=== PATIENT | female | born 1960 | race Caucasian/White ===

== ENCOUNTER 2019-02-04 10:52 | Emergency (ER) | payer MEDICARE, OTHER ==
[~2019-02-04] VITALS: Ht 165.1 cm; Wt 93.5 kg
[2019-02-04 11:00] VITALS: Ht 165.1 cm; Wt 93.5 kg
[2019-02-04] MEDS ORDERED: SOD CHLORIDE 0.9% 1,000 ML IV STA (11:43)
[2019-02-04] MEDS ORDERED: ONDANSETRON 4 MG INJ IV STA (11:43)
[2019-02-04] MEDS ORDERED: DICY10CA40 PO (12:44)
[2019-02-04] MEDS ORDERED: ONDA4TAB14 PO (12:44)
[2019-02-04 13:10] VITALS: BP 131/80; PULSE 62; RESP 16
--- NOTE | 2019-02-04 16:31 | ERD ---
ER Documentation Chief Complaint Chief Complaint vomiting/diarrhea x 4 days HPI Patient is a 58-year-old female with past medical history of hypothyroidism, hypertension, who presents the ER for concerns of nausea, vomiting and diarrhea x4 days. Patient states she has had intermittent abdominal pain however at this time she does not have any abdominal pain. Patient states her symptoms started after eating pork. Patient denies any recent travel. Patient denies any recent antibiotic use. Patient has a history of a hysterectomy. Patient states she vomited once this morning. Patient states she has had 2-3 episodes of loose bowel movements per day. She states her bowel movements are yellow in color. No blood in her stools. Patient did see PCP Dr. Keene prior to coming to ER. Patient was sent to get stool studies done however she feels dehydrated that she presents to the ER. ROS All systems reviewed and are negative except as per history of present illness. Medications Home Meds Active Scripts Dicyclomine HCl (Dicyclomine HCl) 10 Mg Capsule, 10 MG PO TID PRN for ABDOMINAL CRAMPING, #20 CAP Prov:IAN BROOKS PA-C 02/04/19 Ondansetron (Ondansetron Odt) 4 Mg Tab.rapdis, 4 MG PO Q6H PRN for NAUSEA AND/OR VOMITING, #10 TAB Prov:IAN BROOKS PA-C 02/04/19 Allergies Allergies: Coded Allergies: cortisone (Verified Allergy, Unknown, anxiety, 02/04/19) PMhx/Soc History of Surgery: Yes (Hysterectomy,bilateral shoulder pain, left knee sx) Anesthesia Reaction: No Hx Miscellaneous Medical Probl: Yes (HTN, Hypothyroidsm) Hx Alcohol Use: No Hx Substance Use: No Hx Tobacco Use: No Smoking Status: Never smoker FmHx Family History: No diabetes Physical Exam Vitals Vital Signs Date Temp Pulse Resp B/P (MAP) Pulse Ox O2 O2 Flow FiO2 Time Delivery Rate 02/04/19 98.4 62 16 131/80 96 Room Air 13:10 (97) 02/04/19 97.9 78 18 167/79 99 11:00 (108) Physical Exam GENERAL: Well-developed, well-nourished male. Appears in no acute distress. Speaking full sentences. HEAD: Normocephalic, atraumatic. EYES: Pupils are equally reactive bilaterally. EOMs grossly intact. No conjunctival erythema. ENT: Moist mucous membranes. No uvula deviation. No kissing tonsils. NECK: Supple. No meningismus. Normal range of motion of the neck. LUNG: Clear to auscultation bilaterally. No rhonchi, wheezing, rales or coarse breath sounds. HEART: Regular rate and rhythm. No murmurs, rubs or gallops. ABDOMEN: Soft, nontender, and nondistended. No peritoneal signs. Positive bowel sounds in all four quadrants. No rebound tenderness, no guarding. (-) McBurney's point tenderness. No CVA tenderness. EXTREMITIES: Equal pulses bilaterally. No peripheral clubbing, cyanosis or edema. No unilateral leg swelling. NEUROLOGIC: Alert and oriented. Moving all four extremities without any difficulty. Normal speech. Steady gait. SKIN: Normal color. Warm and dry. No rashes or lesions. Result Diagram: 02/04/19 1202 02/04/19 1202 Results 24 hrs Laboratory Tests Test 02/04/19 12:02 White Blood Count 4.1 10^3/ul Red Blood Count 5.04 10^6/ul Hemoglobin 13.5 g/dl Hematocrit 41.5 % Mean Corpuscular Volume 82.3 fl Mean Corpuscular Hemoglobin 26.8 pg Mean Corpuscular Hemoglobin Concent 32.5 g/dl Red Cell Distribution Width 13.2 % Platelet Count 184 10^3/UL Mean Platelet Volume 11.3 fl Immature Granulocytes % 0.200 % Neutrophils % 37.1 % Lymphocytes % 52.1 % Monocytes % 8.6 % Eosinophils % 1.0 % Basophils % 1.0 % Nucleated Red Blood Cells % 0.0 /100WBC Immature Granulocytes # 0.010 10^3/ul Neutrophils # 1.5 10^3/ul Lymphocytes # 2.1 10^3/ul Monocytes # 0.4 10^3/ul Eosinophils # 0.0 10^3/ul Basophils # 0.0 10^3/ul Nucleated Red Blood Cells # 0.0 10^3/ul Urine Color YELLOW Urine Clarity SLIGHTLY CLOUDY Urine pH 5.0 Urine Specific [place] 1.017 Urine Ketones NEGATIVE mg/dL Urine Nitrite NEGATIVE mg/dL Urine Bilirubin NEGATIVE mg/dL Urine Urobilinogen NEGATIVE mg/dL Urine Leukocyte Esterase TRACE Buddy/ul Urine Microscopic RBC 2 /HPF Urine Microscopic WBC 3 /HPF Urine Squamous Epithelial Cells MODERATE /HPF Urine Bacteria FEW /HPF Urine Mucus MANY /HPF Urine Hemoglobin 1+ mg/dL Urine Glucose NEGATIVE mg/dL Urine Total Protein NEGATIVE mg/dl Sodium Level 141 mmol/L Potassium Level 4.5 mmol/L Chloride Level 107 mmol/L Carbon Dioxide Level 24 mmol/L Anion Gap 10 Blood Urea Nitrogen 10 mg/dl Creatinine 0.64 mg/dl Est Glomerular Filtrat Rate mL/min > 60 mL/min Glucose Level 96 mg/dl Calcium Level 9.3 mg/dl Total Bilirubin 0.4 mg/dl Direct Bilirubin 0.00 mg/dl Indirect Bilirubin 0.4 mg/dl Aspartate Amino Transf (AST/SGOT) 49 IU/L Alanine Aminotransferase (ALT/SGPT) 38 IU/L Alkaline Phosphatase 106 IU/L Total Protein 8.1 g/dl Albumin 4.4 g/dl Globulin 3.70 g/dl Albumin/Globulin Ratio 1.18 Lipase 80 U/L Current Medications Medications Dose Sig/Prashanth Start Time Status Last (Trade) Ordered Route PRN Stop Time Admin Dose Reason Admin Sodium 1,000 ml @ Q1H STAT 02/04/19 DC 02/04/19 Chloride 1,000 mls/hr IV 11:43 12:06 02/04/19 12:42 Ondansetron 4 mg ONCE STAT 02/04/19 DC 02/04/19 HCl (Zofran IV 11:43 12:06 Inj) 02/04/19 11:44 Procedures/MDM MEDICAL DECISION MAKING: This is a 58-year-old female with history of hypertension, hypothyroidism who presents the ER for concerns of nausea vomiting and diarrhea x4 days. Vital signs were reviewed. Patient is afebrile. Abdominal exam was benign. Patient had no peritoneal signs. Patient had no rebound or guarding. No evidence of acute abdomen. Blood work was obtained. CBC showed WBC count was noted to be 4.1 with elevated lymphocytes. Patient likely has viral syndrome. No evidence of severe anemia. CMP showed no evidence of electrolyte abnormalities, severe acidosis, alkalosis, renal failure, or liver disease. Lipase showed no evidence of acute pancreatitis . UA showed trace leukocyte esterase, moderate amount of squamous epithelial cells. Patient denies any UTI symptoms. will defer treatment at this time as patient is asymptomatic. Patient likely has a dirty catch. Patient was given IV fluids, Zofran. Upon reexamination, patient reports significant improvement in symptoms. Patient was advised to follow-up with her primary care physician and complete stool studies as requested by her primary care physician Dr. Keene. Patient advised to stay hydrated. BRAT diet discussed. At this time, patient presentation most consistent with nausea, vomiting and diarrhea. Differential diagnosis included but was not limited to acute coronary syndrome, AAA, mesenteric ischemia, lower lobe pneumonia, DKA, bowel perforation, cholecystitis, choledocholithiasis, ascending cholangitis, hepatic abscess, pancreatitis, PUD, gastritis, GERD, splenic rupture, diverticulitis, UTI, pyelonephritis, nephrolithiasis, appendicitis, constipation, , ectopic , PID, ovarian torsion or tubo-ovarian abscess. Patient was nontoxic, [id number] prior to discharge. PRESCRIPTIONS: [place] Truong DISCHARGE: At this time, patient is stable for discharge and outpatient management. I have instructed the patient to follow-up with his/her primary care physician in 1-2 days. I have instructed the patient to promptly return to the ER at any time for any new or worsening symptoms including increased pain, nausea, vomiting, diarrhea, fever, weakness or LOC. The patient and/or family expressed understanding of and agreement with this plan. All questions were answered. Home care instructions were provided. Patient's blood pressure was elevated (>120/80) but appears stable without evidence of hypertensive emergency, hypertensive urgency or end-organ failure. I had discussion with the patient about the risks of hypertension. I have advised the patient to follow up with his/her primary care physician for outpatient monitoring and treatment for hypertension in 2-3 days. I have instructed the patient to return to the ER for any new or worsening symptoms including chest pain, shortness of breath, headache, blurred vision, confusion, nausea, vomiting or LOC. Disclaimer: Inadvertent spelling and grammatical errors are likely due to EHR/dictation software use and do not reflect on the overall quality of patient care. Also, please note that the electronic time recorded on this note does not necessarily reflect the actual time of the patient encounter. Departure Diagnosis: Primary Impression: Leukopenia Additional Impression: Nausea vomiting and diarrhea Condition: Fair Patient Instructions: Vomiting And Diarrhea, Nonspecific (Adult) Referrals: [facility] YOU HAVE RECEIVED A MEDICAL SCREENING EXAM AND THE RESULTS INDICATE THAT YOU DO NOT HAVE A CONDITION THAT REQUIRES URGENT TREATMENT IN THE EMERGENCY DEPARTMENT. FURTHER EVALUATION AND TREATMENT OF YOUR CONDITION CAN WAIT UNTIL YOU ARE SEEN IN YOUR DOCTORS OFFICE WITHIN THE NEXT 1-2 DAYS. IT IS YOUR RESPONSIBILITY TO MAKE AN APPOINTMENT FOR FOLOW-UP CARE. IF YOU HAVE A PRIMARY DOCTOR --you should call your primary doctor and schedule an appointment IF YOU DO NOT HAVE A PRIMARY DOCTOR YOU CAN CALL OUR PHYSICIAN REFERRAL HOTLINE AT IF YOU CAN NOT AFFORD TO SEE A PHYSICIAN YOU CAN CHOSE FROM THE FOLLOWING [facility] [address] [place] [facility] [address] [facility] [address] [facility] [address] [facility] [address] [facility]. [facility] [address] [facility]. [facility] YOU HAVE RECEIVED A MEDICAL SCREENING EXAM AND THE RESULTS INDICATE THAT YOU DO NOT HAVE A CONDITION THAT REQUIRES URGENT TREATMENT IN THE EMERGENCY DEPARTMENT. FURTHER EVALUATION AND TREATMENT OF YOUR CONDITION CAN WAIT UNTIL YOU ARE SEEN IN YOUR DOCTORS OFFICE WITHIN THE NEXT 1-2 DAYS. IT IS YOUR RESPONSIBILITY TO MAKE AN APPOINTMENT FOR FOLOW-UP CARE. IF YOU HAVE A PRIMARY DOCTOR --you should call your primary doctor and schedule and appointment IF YOU DO NOT HAVE A PRIMARY DOCTOR YOU CAN CALL OUR PHYSICIAN REFERRAL HOTLINE AT . IF YOU CAN NOT AFFORD TO SEE A PHYSICIAN YOU CAN CHOSE FROM THE FOLLOWING [facility] INSTITUTIONS: [facility] [address] [place] [address] [facility] [address] [place] [address] [facility] [address] [place] [address] Additional Instructions: Call your primary care doctor TOMORROW for an appointment during the next 1-2 days.See the doctor sooner or return here if your condition worsens before your appointment time. Follow-up with your doctor as scheduled. Obtain stool studies as recommended by your primary doctor. Drink of plenty of fluids. IAN BROOKS PA-C February 04, 2019 16:31
== END 2019-02-04 13:12 | disposition home or self-care (01) ==
LOC: FTE 10:52
DX: D72.819 Decreased white blood cell count, unspecified (principal); R11.2 Nausea with vomiting, unspecified; R19.7 Diarrhea, unspecified; I10 Essential (primary) hypertension; E03.9 Hypothyroidism, unspecified
CPT/HCPCS: 36415; 80053; 81001; 83690; 85025; 96361; 96374; 99284; J2405; J7030